=== PATIENT | female | born 1950 | race Caucasian/White ===

== ENCOUNTER 2017-09-25 14:32 | Inpatient (IN) | payer OTHER, MEDICAID ==
[~2017-09-25] VITALS: Ht 167.6 cm; Wt 85.3 kg
--- NOTE | ~2017-09-25 | EKG ---
[place] [address] ELECTROCARDIOGRAM REPORT Name: LORRAINE COOPER Room: [address] ADM IN ..#: [id number] Admission: 09/25/17 Attend Phys: Indigo Otto Discharge: Date of : 46 Report #: [id number] THIS REPORT FOR: //name// [facility] Test Date: 2017-09-26 Test Time: 08:54:15 Pat Name: LORRAINE KENNETH Department: Room: [address] Gender: F Second Vp Hr Assessment: : 1950 Requested By: Romeo Son Order Number: [id number] Reading MD: Measurements Intervals [place] Rate: 68 P: 51 SD: 183 QRS: -6 QRSD: 94 T: 8 QT: 422 QTc: 449 Interpretive Statements Sinus rhythm Abnormal R-wave progression, early transition Compared to ECG 08/17/2016 17:07:48 No significant changes [email or web address] By: [id number] Epiphany EpiphanyMD /EPI
[~2017-09-25 14:32] MED LIST: ASPIR 8181 MG PO; B/P MED; CLONIDINE0.1 PO; COREG25 MG PO; FLEXERIL PO; HYDROCHLOROTHIA25 M2 PO; HYDROCODON-ACE1 EAC7 PO; LISINOPRIL10 MG PO; MULTI-VITAMIN1 EAC5 PO; NAPROSYN375 MG PO; NORVASC5 MG PO; OTHER MISCELL; SINGULAIR 10 MG10 M1 PO; TRAMADOL 50 MG50 MG PO; WATER PILL
[2017-09-25 14:37] VITALS: BP 181/109
[2017-09-25] MEDS ORDERED: TYLENOL EXTRA500 MG PO (14:41)
[2017-09-25] MEDS ORDERED: EYE DROPS (14:42)
[2017-09-25] MEDS ORDERED: FISH OIL 1,001000 M2 PO (14:42)
[2017-09-25] MEDS ORDERED: FLONASE 0.05%50 MCG NASAL ×2 (14:42→18:30)
[2017-09-25 14:56] LABS: ABSOLUTE BASOPHILS 0.1 thou/uL (0.0-0.2); ABSOLUTE EOSINOPHILS 0.2 thou/uL (0.0-0.7); ABSOLUTE LYMPHOCYTES 2.9 thou/uL (0.8-5.3); ABSOLUTE NEUTROPHILS 4.7 thou/uL (1.6-8.1); BASOPHILS 1.3 %; EOSINOPHILS 2.4 %; HEMATOCRIT 41.1 % (37.0-47.0); HEMOGLOBIN 13.9 gm/dL (12.0-15.0); LYMPHOCYTES 32.1 %; MCH 29.9 pg (26.0-34.0); MCHC 33.8 g/dL (28.0-37.0); MCV 88.4 fL (80.0-100.0); MONOCYTES 10.8 %; MPV 8.4 fl. (7.2-11.1); NUCLEATED RBCS 0 /100WBC; PLATELET COUNT* 273 thou/uL (150-400); POLYS 53.4 %; RBC 4.65 mil/uL (4.20-5.00); WBC 8.9 thou/uL (4.0-11.0)
[2017-09-25 15:17] LABS: ANION GAP 12 mmol/L (7-16); BUN 16 mg/dL (7-18); CALCIUM 10.2 mg/dL (8.5-10.1); CHLORIDE 104 mmol/L (98-107); CO2 24 mmol/L (21-32); CREATININE 0.9 mg/dL (0.6-1.3); GLUCOSE 98 mg/dL (70-99); POTASSIUM 3.8 mmol/L (3.5-5.1); SODIUM 140 mmol/L (136-145)
[2017-09-25 15:37] LABS: ALBUMIN 4.2 g/dL (3.4-5.0); ALKALINE PHOSPHATASE 66 U/L (46-116); CK-MB MASS 1.4 ng/mL (<0.5-3.6); LIPASE 156 U/L (73-393); MAGNESIUM 2.2 mg/dL (1.8-2.4); NT-PRO BRAIN NAT PEPTIDE 180 pg/mL (<300); SGOT 21 U/L (15-37); SGPT 30 U/L (30-65); TOTAL BILIRUBIN 0.3 mg/dL (<0.1-1.0); TROPONIN-I LEVEL <0.06 ng/mL (<0.06)
[2017-09-25 15:43] LABS: APTT 25.9 Seconds (25.0-31.3)
[2017-09-25 16:45] VITALS: BP 173/86
[2017-09-25] MEDS ORDERED: ZANTAC 150MG T150 MG PO (18:26)
[2017-09-25] MEDS ORDERED: XANAX 0.25 MG0.25 MG PO (18:29)
[2017-09-25] MEDS ORDERED: EYE ALLERGY REL15 M1 OPHTHALMIC (18:34)
--- NOTE | 2017-09-25 19:10 | NUR ---
PATINET RESTING IN BED. UP AD YOVANA AND INDEPENDENT. AOX4. VITAL SIGNS TAKEN AND ADMISSION COMPLETED. HOURKY ROUNDING FOR PATINET SAFETY AND PATIENT IN NO APPARENT SIGNS OF DISTRESS.
[2017-09-25 20:00] VITALS: BP 177/83
[2017-09-26 02:18] VITALS: BP 112/85
--- NOTE | 2017-09-26 05:01 | NUR ---
PT ALERT ORIENTED. UP AD YOVANA IN ROOM. TRAMADOL GIVEN HS FOR MORGAN. PT STATED HE MORGAN WAS GONE ON REASSESSMENT. TELEMETRY SHOWS SR. INITAL BP 177/83. LAST BP 112/85. RESTING QUIETLY. WILL CONTINUE TO MONITOR.
[2017-09-26 08:00] VITALS: BP 156/85
--- NOTE | 2017-09-26 10:32 | EKG ---
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 [place] : 1950 Requested By: Romeo Son Order Number: [id number] MD: Armond Good Measurements Intervals [place] Rate: 106 P: 50 PA: 180 QRS: -8 QRSD: 99 T: 17 QT: 334 QTc: 444 Interpretive Statements Sinus tachycardia Minimal ST depression, lateral leads Compared to ECG 08/17/2016 17:07:48 ST (T wave) deviation now present Sinus rhythm no longer present Electronically Signed On 09-26-2017 10:31:52 CDT by Armond Good [email or web address] <ELECTRONICALLY SIGNED> By: Armond Good MD, FACC 09/26/17 1031 1439 1439 Armond Good MD, [facility] /EPI
--- NOTE | 2017-09-26 10:39 | EKG ---
[place] [address] ELECTROCARDIOGRAM REPORT Name: LORRAINE COOPER Room: [address] ADM IN [facility]#: [id number] Admission: 09/25/17 Attend Phys: Indigo Otto Discharge: Date of : 46 Report #: [id number] THIS REPORT FOR: //name// [facility] Test Date: 2017-09-25 Test Time: 23:33:18 Pat Name: LORRAINE COOPER Department: Room: [address] Gender: F Insole [place]: [place] : 1950 Requested By: Romeo Son Order Number: [id number] Gaby MD: Armond Good Measurements Intervals [place] Rate: 69 P: 62 ID: 178 QRS: -10 QRSD: 98 T: 31 QT: 436 QTc: 467 Interpretive Statements Sinus rhythm Compared to ECG 08/17/2016 17:07:48 rate slowed Electronically Signed On 09-26-2017 10:39:19 CDT by Armond Good [email or web address] <ELECTRONICALLY SIGNED> By: Armond Good MD, [facility] 09/26/17 1039 32 32 Armond Good MD, FACC /EPI
--- NOTE | 2017-09-26 10:44 | EKG ---
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
[2017-09-26 12:04] VITALS: BP 169/88
--- NOTE | 2017-09-26 15:34 | NUR ---
INITIAL ASSESSMENT: Pt evaluated for d/c planning needs. Reviewed chart and spoke with nurse and dtr. Pt currently off floor for testing. Pt lives alone in apartment and was independent with ADL's prior to admission to the hospital. Pt uses no DME and has not had home health in the past. Pt no longer drives. Family is supportive and involved. Pt plans on returning home on d/c from hospital. Will remain available to assist as needed.
--- NOTE | 2017-09-26 17:01 | NUR ---
PT SOMEWHAT PROGRESSING TOWARDS GOALS TODAY. CONSULTED CARDIOLOGY THIS SHIFT FOR HTN. HTN MEDS INCREASED AND PT HAS STRESS TEST SCHEDULED FOR TOMORROW. PT NOTED TO HAVE HTN WITH SBP ABOVE [address] BROWNLEE AWARE AND ORDERS TO GIVE HS HTN MEDS EARLY OBTAINED. PT NOTED TO BECOME VERY ANXIOUS WHEN BLOOD PRESSURE ELEVATED. DIFFICULT FOR PT TO CALM DOWN. WCTM. FAMILY AT BEDSIDE. CLWR.
[2017-09-26 17:30] VITALS: BP 165/80
[2017-09-26 20:00] VITALS: BP 203/100
[2017-09-26 22:30] VITALS: BP 138/57
[2017-09-27] VITALS (7 sets, daily range): BP systolic 112–155; BP diastolic 55–97
--- NOTE | 2017-09-27 04:14 | NUR ---
ASSUMED PT CARE AT 1930, PT IS A&OX4, PT APPEARS TO BE ANXIOUS REGARDING BP. PT GIVEN VERBAL EDUCATION ON REASONS BP CAN BE ELEVATED, AND MEDCATIONS TO BRING BP DOWN. PT IS TRACING NSR ON THE MONITOR, PT IS ON RA SATTING MID TO HIGH 90'S. PT C/O A HEADACHE THIS SHIFT, PRN PAIN MEDICATIONS GIVEN PER MAY. PT IS NPO THIS SHIFT FOR PENDING STRESS TEST IN THE AM. BED IN LOW POSITION, CALL IGHT IN REACH. HOURLY ROUNDING COMPLETED FOR PT SAFETY.
[2017-09-27 05:02] LABS: ABSOLUTE BASOPHILS 0.2 thou/uL (0.0-0.2); ABSOLUTE EOSINOPHILS 0.3 thou/uL (0.0-0.7); ABSOLUTE LYMPHOCYTES 2.7 thou/uL (0.8-5.3); ABSOLUTE MONOCYTES 0.9 thou/uL (0.0-1.2); ABSOLUTE NEUTROPHILS 3.5 thou/uL (1.6-8.1); EOSINOPHILS 3.7 %; HEMATOCRIT 39.1 % (37.0-47.0); HEMOGLOBIN 12.9 gm/dL (12.0-15.0); LYMPHOCYTES 35.7 %; MCH 29.5 pg (26.0-34.0); MCHC 33.1 g/dL (28.0-37.0); MCV 89.3 fL (80.0-100.0); MONOCYTES 12.4 %; MPV 8.5 fl. (7.2-11.1); NUCLEATED RBCS 0 /100WBC; PLATELET COUNT* 247 thou/uL (150-400); POLYS 46.2 %; RBC 4.39 mil/uL (4.20-5.00); RDW-CV 14.3 % (10.5-14.5); WBC 7.5 thou/uL (4.0-11.0)
[2017-09-27 05:14] LABS: ANION GAP 8 mmol/L (7-16); BUN 18 mg/dL (7-18); CHLORIDE 105 mmol/L (98-107); CHOLESTEROL 161 mg/dL (<200); CO2 26 mmol/L (21-32); CREATININE 0.9 mg/dL (0.6-1.3); GLUCOSE 99 mg/dL (70-99); HDL CHOLESTEROL 57 mg/dL (>40); LDL CHOLESTEROL 61 mg/dL (<100); POTASSIUM 4.2 mmol/L (3.5-5.1); SODIUM 139 mmol/L (136-145); TC:HDL 2.8 Ratio (Not establshd); TRIGLYCERIDE 217 mg/dL (<150); VLDL 43 mg/dL (<40)
[2017-09-27 05:27] LABS: SERUM ASSESSMENT CLEAR
--- NOTE | 2017-09-27 14:37 | CARDNUC ---
[place] [address] CARDIAC NUCLEAR IMAGING REPORT Name: LORRAINE COOPER Room: [address]#: [id number] Admission: 09/25/17 Attend Phys: Phani Edgar Discharge: Date of : 46 Date of Service: 09/27/17 1436 Report #: [id number] THIS REPORT FOR: //name// APPROVED REPORT Study performed: 09/26/2017 14:40:00 Indication: 232 Patient Location: In-Patient Room #: 232 Stress Tech: Jennifer Waters Stress Nurse: Elaina Buitrago RN Ht: 5 ft 10 in Wt: 187 lbs BSA: 2.03 m2 BMI: 26.82 Medical History Medical History: hypertension Medications: carvedilol, lisiniopril, aspirin, clonidine, enoxaparine Allergies: nkda Exercise History: Indeterminate Meds Held (24 hrs): carvedilol Resting Data Rest SPECT myocardial perfusion imaging was performed in supine position 30 minutes following the intravenous injection of 10.7 mCi of Tc-99m Sestamibi. Time of rest injection: 1000 The images were gated to evaluate regional wall motion and calculate left ventricular ejection fraction. Administration Route: IV Administration Site: Right Wrist Pharmacologic Stress Pharmacologic stress test was performed by injecting Regadenoson 0.4 mg IV push over 10-15 seconds immediately followed by the intravenous injection of 34.6 mCi of Tc-99m Sestamibi. Time of stress injection: 1125 Administration Route: IV Administration Site: Right Wrist Heart Rate at time of stress injection: 106 bpm. Gated Stress SPECT was performed 110 minutes after stress injection. The images were gated to evaluate regional [place] [address] CARDIAC NUCLEAR IMAGING REPORT Name: LORRAINE COOPER Room: [address]#: [id number] Admission: 09/25/17 Attend Phys: Phani Edgar Discharge: Date of : 46 Date of Service: 09/27/17 1436 Report #: [id number] left ventricular ejection fraction. Prone imaging was performed. Stress Test Details Stress Test: Pharmacologic stress testing performed using 0.4 mg of regadenoson per 5 mL given IV over 10 seconds. Reason for pharmacologic stress test: physical limitation. HR Resting HR: 75 bpm Max Heart Rate (APMHR): 151 bpm Max HR Achieved: 106 bpm Target HR (85% APMHR): 128 bpm % of APMHR: 70 Recovery HR: 92 bpm HR response to stress: Normal HR response to stress BP Resting BP: 175/91 mmHg Max BP: 176/96 mmHg BP response to stress: Normal blood pressure response to stress. ECG Resting ECG: Sinus Rhythm Stress ECG: Sinus Rhythm ST Change: None Arrhythmia: None Recovery ECG: Sinus Rhythm Recovery ST Change: None Recovery Arrhythmia: None Clinical Reason for Termination: Completed protocol Stress Symptoms: None Exercise duration: 0 min sec Exercise capacity: 1 METs Study Quality Study: Good Artifact: No artifact No artifact Lung Uptake: Normal Study Data At rest, the left ventricular ejection fraction was 78%.. Post stress, the left ventricular ejection was 84%.. SSS: 2 SRS: 5 [place] [address] CARDIAC NUCLEAR IMAGING REPORT Name: LORRAINE COOPER Room: [address] IN [facility]#: [id number] Admission: 09/25/17 Attend Phys: Phani Edgar Discharge: Date of : 46 Date of Service: 09/27/17 1436 Report #: [id number] SDS: -3 TID = 0.89. Perfusion Review of rest data reveals normal perfusion, without perfusion defects.Imaging obtained following vasodilator stress demonstrate a similar, uniform uptake of tracer without defects. Prone imaging was normal. LVEDV is normal.No segental wall motion abnormality seen. Images were reviewed using [employer]. Wall Motion normal all segments Nuclear Conclusion ECG Findings: negative for ischemia Clinical Findings: negative for ischemia Nuclear Findings: negative for ischemia Exercise Capacity: not assessed Left Ventricular Function: normal Risk Study: low Normal perfusion nuclear stress test <ELECTRONICALLY SIGNED> By: Ady Scott MD, FAC 09/27/17 1436 1436 1436 Ady Scott MD, [facility] /INF
--- NOTE | 2017-09-27 17:38 | NUR ---
ASSUMED CARE OF PATIENT AFTER REPORT THIS MORNING. PATIENT AWAKE, ALERT, AND ORIENTED APPROPRIATELY. PHYSICAL ASSESSMENT COMPLETED AND CHARTED. NO COMPLAINTS OF PAIN THIS SHIFT. GIVEN SCHEDULED MEDICATIONS AFTER STRESS TEST, SEE EMAR FOR DOCUMENTATION. VITAL SIGNS STABLE. OXYGEN SATURATION WITHIN NORMAL LIMITS ON ROOM AIR. PATIENT IS UP AD YOVANA IN ROOM WITHOUT DIFFICULTY. BATHROOM PRIVELEGES. DENIES NEEDS AT THIS TIME. CALL LIGHT WITHIN REACH, USES APPROPRIATELY. NURSING WILL CONTINUE TO MONITOR.
[2017-09-28] VITALS: BP 133/71
[2017-09-28 04:00] VITALS: BP 113/40
--- NOTE | 2017-09-28 04:17 | NUR ---
ASSUMED PT CARE AT 1930, PT IS A&OX4, TRACING NSR ON THE MONITOR, ON RA SATTING MID TO HIGH 90'S. PT DENIES ANY PAIN OR NEEDS AT THIS TIME. PT IS RESTING IN BED AT THIS TIME. BED IN LOW POSITION, CHUCKY LIGHT IN REACH, BED ALARM ON. HOURLY ROUNDING COMPLETED FOR PT SAFETY.
[2017-09-28 08:00] VITALS: BP 123/76
--- NOTE | 2017-09-28 08:00 | NUR ---
ASSESSMENT COMPLETED REFER TO COMPUTER CHARTING. FILLER SHAKER TRACKING SR. PATIENT RESTING IN BED REPORTING NO PAIN, NAUSEA OR SHORTNESS OF BREATH. BED IN LOW AND LOCKED POSITION. CALL LIGHT WITHIN REACH. IV SALINE LOCKED. AND ON ROOM AIR. DISCHARGE ORDERS RECIEVED. DISCHARGE INSTRUCTIONS GIVEN TO PATIENT. REPORTING NO QUESTIONS OR CONCERNS. IV AND FILLER SHAKER DISCONTINUED AND REMOVED. ALL PERSONAL BELONGINGS GATHERED AND SENT HOME WITH PATIENT. PATIENT WALKED TO THE DOORS WITH NURSING STAFF.
[2017-09-28] MEDS ORDERED: LISINOPRIL10 MG PO (09:10)
[2017-09-28] MEDS ORDERED: CARVEDILOL3.125 MG PO (09:12)
[2017-09-28 09:18] VITALS: BP 155/68
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
[2017-10-15] MEDS ORDERED: CLONIDINE0.1 PO (14:27)
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
== END 2017-09-28 12:26 | disposition home or self-care (01) | DRG 305 ==
LOC: M.ERS 14:32 → M.2W 15:36 → M.TBA-ER 15:36 → M.2W 17:02
PROVIDERS: Family Medicine; Internal Medicine; ADMIT Internal Medicine
DX: I16.1 Hypertensive emergency (principal); I10 Essential (primary) hypertension; F41.9 Anxiety disorder, unspecified; I65.21 Occlusion and stenosis of right carotid artery; Z79.82 Long term (current) use of aspirin; Z82.49 Family history of ischemic heart disease and other diseases of the circulatory system; Z79.899 Other long term (current) drug therapy

== ENCOUNTER → 2017-10-15 | Outpatient (CLI) | payer OTHER, MEDICAID ==
[2017-10-15] VITALS (9 sets, daily range): BP systolic 121–183; BP diastolic 51–82
[~2017-10-15] VITALS: Ht 167.6 cm; Wt 84.8 kg
[~2017-10-15] MED LIST changes: +CARVEDILOL3.125 MG PO; +EYE ALLERGY REL15 M1 OPHTHALMIC; +EYE DROPS; +FISH OIL 1,001000 M2 PO; +FLONASE 0.05%50 MCG NASAL; +MIRALAX17 GM PO; +NORCO 5-325 TA1 EACH PO; +TYLENOL EXTRA500 MG PO; +XANAX 0.25 MG0.25 MG PO; +ZANTAC 150MG T150 MG PO
[2017-10-15 08:56] LABS: HEMATOCRIT 41.5 % (37.0-47.0); HEMOGLOBIN 13.7 gm/dL (12.0-15.0); MCH 29.5 pg (26.0-34.0); MCHC 33.1 g/dL (28.0-37.0); MCV 89.3 fL (80.0-100.0); MPV 8.5 fl. (7.2-11.1); RBC 4.65 mil/uL (4.20-5.00); RDW-CV 13.7 % (10.5-14.5); WBC 6.3 thou/uL (4.0-11.0)
[2017-10-15 09:29] LABS: ANION GAP 10 mmol/L (7-16); BUN 14 mg/dL (7-18); CALCIUM 9.2 mg/dL (8.5-10.1); CHLORIDE 106 mmol/L (98-107); CO2 24 mmol/L (21-32); CREATININE 0.9 mg/dL (0.6-1.3); GLUCOSE 107 mg/dL (70-99); POTASSIUM 4.2 mmol/L (3.5-5.1); SODIUM 140 mmol/L (136-145)
[2017-10-15 09:34] LABS: ALBUMIN 3.8 g/dL (3.4-5.0); ALKALINE PHOSPHATASE 61 U/L (46-116); CHOLESTEROL 174 mg/dL (<200); HDL CHOLESTEROL 64 mg/dL (>40); LDL CHOLESTEROL 71 mg/dL (<100); SGOT 18 U/L (15-37); SGPT 28 U/L (30-65); TC:HDL 2.7 Ratio (Not establshd); TOTAL BILIRUBIN 0.3 mg/dL (<0.1-1.0); TOTAL PROTEIN 7.5 g/dL (6.4-8.2); TRIGLYCERIDE 196 mg/dL (<150); VLDL 39 mg/dL (<40)
[2017-10-15 09:41] LABS: SERUM ASSESSMENT Clear
[2017-10-15 09:49] LABS: APTT 25.9 Seconds (25.0-31.3)
--- NOTE | 2017-10-15 15:27 | EKG ---
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
--- NOTE | 2017-10-16 09:16 | CARD ---
[address] [address] CARDIAC CATH REPORT Name: LORRAINE COOPER Room: [facility]#: [id number] Admission: 10/15/17 Attend Phys: Armond Good MD, F Discharge: Date of : 46 Report #: [id number] THIS REPORT FOR: //name// APPROVED REPORT Study performed: 10/15/2017 12:04:23 Patient Details Patient Status: Out-Patient Room #: The patient is a 67 year-old female Event Personnel Armond Good Pulp[employer] Contractor, Mena Urban RTR Monitor, Tyson Lehman (R) Monitor, Fang Gutierrez RTR Scrub, Jasmyn Vu RN senior web developer Performed diagnostic cardiac catheterizationArt Access - R radial artery Art Access - R radial artery Left Heart Cath w/or w/o Coronaries [facility] Indication Dyspnea, Chest pain Risk Factors Arterial Hypertension, Peripheral Vascular Disease Admission/Lab Medications/Medications given during procedure Heparin Unfract. Procedure Narrative The patient was brought electively to the Cardiac Catheterization Laboratory and was prepped and draped in a sterile manner. The right wrist was infiltrated with 1% Lidocaine subcutaneous anesthesia. A 6 fr sheath was inserted into the right radial artery. Coronary angiography was performed using coronary diagnostic catheters. The right coronary system was accessed and visualized with a Diagnostic catheter. The left coronary system was accessed and visualized with a Diagnostic catheter. The left ventricle was accessed and visualized with a Diagnostic catheter. Left ventricular/Aortic Valve gradient assessed via catheter pullback. Left ventriculogram was performed in SCOTT projection. Closure device was deployed with a Fr small vasband. The patient tolerated the procedure well and there were no complications associated with the procedure. [place] [address] CARDIAC CATH REPORT Name: LORRAINE COOPER Room: [facility]#: [id number] Admission: 10/15/17 Attend Phys: Armond Good MD, F Discharge: Date of : 46 Report #: [id number] Intraoperative Conscious Sedation Sedation start time: 12:38 Case end Time: 1:17 Fluoro Time: 6 minutes Dose: DAP 98684 cGycm2 780 mGy Contrast Type and Amount: Omnipaque 90 ml Coronary Angiography The patient's coronary anatomy is right dominant. [place] Artery Percent Stenosis Left Main: 0 % Prox LAD: 0 % Mid/Distal LAD: 0 % Circumflex: 0 % RCA: 30 % Ramus: % Left Ventriculography The left ventricle is normal in size with normal contractility. The left ventricular ejection fraction is estimated to be 60-65%. Left ventricular wall motion abnormalities are not present. There is no mitral insufficiency. Hemodynamics The aortic pressure is 121/63 mmHg with a mean of 90 mmHg. The left ventricular pressure is 109/0 mmHg with a mean of mmHg. The left ventricular end diastolic pressure is 10 mmHg. There was no gradient across the aortic valve upon pullback. Conclusion 1. no significant cad 2. normal left ventricular systolic function Recommendations Aggressive Medical Therapy <ELECTRONICALLY SIGNED> By: Armond Good MD, [facility] 10/16/17915 5 5Dachantal Good MD, FAC /INF
== END | disposition home or self-care (01) ==
LOC: M.CL 08:16
PROVIDERS: Internal Medicine Cardiovascular Disease
DX: R07.9 Chest pain, unspecified (principal); I10 Essential (primary) hypertension; I73.9 Peripheral vascular disease, unspecified; Z79.899 Other long term (current) drug therapy; Z79.82 Long term (current) use of aspirin; Z79.891 Long term (current) use of opiate analgesic; Z98.890 Other specified postprocedural states

== ENCOUNTER 2017-10-18 07:09 | Inpatient (IN) | payer OTHER, MEDICAID ==
[~2017-10-18] VITALS: Ht 165.1 cm; Wt 98.0 kg
[~2017-10-18 07:09] MED LIST changes: -MIRALAX17 GM PO; -NORCO 5-325 TA1 EACH PO
[2017-10-18 09:35] VITALS: BP 115/70
[2017-10-18 18:00] VITALS: BP 137/60
[2017-10-18 18:42] LABS: CALCIUM 8.7 mg/dL (8.5-10.1); CREATININE 0.9 mg/dL (0.6-1.3); POTASSIUM 4.4 mmol/L (3.5-5.1)
--- NOTE | 2017-10-18 18:57 | NUR ---
ADMITTED PT FROM OR ALERT AND ORIENTED INCISION INTACT. DENIES PAIN OR SOA. TAKING PO WELL. PROGRESSING
[2017-10-18 19:00] VITALS: BP 112/57
[2017-10-18 22:00] VITALS: BP 119/58
[2017-10-19] VITALS (8 sets, daily range): BP systolic 90–137; BP diastolic 50–70
--- NOTE | 2017-10-19 10:29 | NUR ---
INTERDISICIPLINARY ROUNDS: PT IS S/P CEA AND HAS ORDERS FOR DC PENDING SURGEON APPROVAL. PT IS EXCITED ABOUT GOING HOME. SHE LIVES ALONE IN [place] IN [place]. HAS FRIENDS THERE WHO ARE HELPFUL. PT HAS SUPPORTIVE FAMILY. SHE IS INDEPENDENT WITH ADLS AND USES NO EQUIPMENT. PT DOESN'T DRIVE, [facility]TR PROVIDES TRANSPORT. PT STATES SHE HAS NO NEEDS AT DC AND DECLINED HH.
[2017-10-19] MEDS ORDERED: NORCO 5-325 TA1 EACH PO (11:30)
[2017-10-19] MEDS ORDERED: MIRALAX17 GM PO (11:56)
--- NOTE | 2017-10-19 14:15 | NUR ---
PT ASSESSMENT CHARTED. VSS. DISCHARGE INFORMATION HAS BEEN GONE OVER WITH PATIENT. PRESCRIPTION FOR HYDROCODONE GIVEN FROM VASCULAR. PATIENT UP WALKING AROUND THE UNIT WITHOUT DIFFICULTY. NO QUESTIONS OR CONCERNS AT THIS TIME. PRESENTLY WAITING FOR DAUGHTER TO PICK PATIENT UP FOR DISCHARGE.
--- NOTE | 2017-10-19 21:31 | OP ---
[facility] [address] [place] [address] OPERATIVE REPORT Name: LORRAINE COOPER Room: [address] IN [facility]#: [id number] Admission: 10/18/17 Attend Phys: Indigo Otto Discharge: 10/19/17 Date of : 46 Report #: [id number] THIS REPORT FOR: //name// CC: Hollis Edgar DATE OF SERVICE: 10/18/2017 PREOPERATIVE DIAGNOSIS: Asymptomatic high-grade right carotid artery stenosis. POSTOPERATIVE DIAGNOSIS: Asymptomatic high-grade right carotid artery stenosis. OPERATION: 1. Right carotid endarterectomy with bovine pericardial patch angioplasty. 2. Completion intraoperative duplex. SURGEON: Hollis Joseph DO. SHOP WELDER: CLARA Upton. ANESTHESIA: General. ESTIMATED BLOOD LOSS: 150 mL. FLUIDS: 800 mL crystalloid. URINE OUTPUT: None. SPECIMENS: Right carotid plaque. IMPLANTS: 0.8 x 8 bovine pericardial patch in the right carotid artery. COMPLICATIONS: None. FINDINGS: Demonstrated heavily calcified approximately 80% stenosis in the right carotid artery. This endarterectomized well with good distal endpoint in the internal carotid artery. Completion intraoperative duplex demonstrated no intraluminal defects, good flow through the external carotid artery and continuous diastolic flow through the internal carotid artery. CLINICAL HISTORY: The patient is a 67-year-old woman with high-grade right carotid artery stenosis. She was recommended for elective endarterectomy for stroke risk reduction. DETAILS OF PROCEDURE: After informed consent was obtained, the patient was [facility] [address] [place] [address] OPERATIVE REPORT Name: LORRAINE COOPER Room: [address] IN [facility]#: [id number] Admission: 10/18/17 Attend Phys: Indigo Otto Discharge: 10/19/17 Date of : 46 Report #: [id number] taken to the operating room and placed on the OR bed in supine position. She was administered general anesthesia by the anesthesia team. Right neck was prepped and draped in the usual sterile fashion. Full timeout was performed identifying correct patient and procedure. Next, a longitudinal incision was made along the anterior border of sternocleidomastoid. Dissection was carried down through skin and subcutaneous tissues both sharply with electrocautery. The facial vein was identified, was ligated between 2-0 silk ties and divided. The remainder carotid sheath was entered. The common carotid artery was circumferentially dissected free and controlled with an umbilical tape and Rumel tourniquet. The vagus nerve was seen coursing over the bifurcation. I had to have extensive mobilization in order to gain control of the bifurcation. Also, I had to fully mobilize the hypoglossal nerve and divide the occipital branch to the external carotid artery and gained distal control of the internal carotid artery. The external carotid and superior thyroid arteries were then also controlled with Silastic vessel loops in Lam fashion. I then administered 8000 units of intravenous heparin. This was allowed to circulate for 3 minutes. I then sequentially clamped the internal followed by the external common carotid arteries. I then made a longitudinal arteriotomy, extended with Lam scissors on the normal common and internal carotid arteries. I then placed a 10-[place] shunt in standard fashion. Doppler interrogation confirmed flow through the shunt. I then performed a standard endarterectomy, the eversion endarterectomy of the external carotid artery, freed the artery of all intimal debris, tailoring good distal endpoint on the internal carotid artery, flushed with heparinized saline. I then performed a patch angioplasty with bovine pericardial patch with running 6-0 Prolene suture. Prior to completion of the suture line, the shunt was removed and the arteries were allowed to fore and backbleed and then flushed with heparinized saline. I completed the patch, restored flow first up the external carotid artery and after several heartbeats to the internal carotid artery. I then performed intraoperative duplex, again demonstrated no intraluminal defects and good flow through the external and continuous diastolic flow through the internal carotid artery. Satisfied with the result, the heparin was then partially reversed with 50 mg protamine. Once hemostasis was ensured, the wound was irrigated with antibiotic solution. It was closed in layers with 2-0 and 3-0 Vicryl, 4-0 Monocryl on the skin. Dermabond was applied. All sponge, sharp and instrument counts reported correct x 2. She tolerated the procedure well. She was extubated, moving upper and lower extremities appropriately to command and taken to recovery room in stable condition. <ELECTRONICALLY SIGNED> By: Hollis Joseph DO 10/19/17 2131 1600 1632Aruth Joseph DO /nt
--- NOTE | 2017-10-30 14:10 | PATH ---
[facility] [address] [place] [address] PATHOLOGY RPT PROCEDURE Name: CATRACHITA COOPER Room: [address] IN ..#: [id number] Admission: 10/18/17 Date of : 46 Discharge: 10/19/17 Report #: [id number] Path Case #: [id number] [facility] Accession Number: [id number] . 01 Material submitted: . RIGHT CAROTID PLAQUE . 01 Clinical history: . Right carotid stenosis . 02 Diagnosis: Plaque "right carotid plaque": - Calcified atherosclerosis. (SHA:leo; 10/23/2017) QMS/10/23/2017 . 02 Electronically signed: . Kareem Stauffer MD, Pathologist NPI- [id number] . 01 Gross description: . The specimen is received in formalin, labeled "Catrachita Cooper right carotid plaque". Received is a segment of moderately calcified rubbery pale maradiaga tissue measuring 2.0 x 1.2 x 0.8 cm in greatest dimensions. The specimen is submitted representatively in cassette A1, following decalcification. (CAA; 10/19/2017) QAC/QAC . 02 Pathologist provided ICD-10: I65.21 . 02 CPT . 055082, 432990 Performed at: [address], [place], [place] [id number] MD Sourav Ospina MD Phone: [phone] Performed at: [address] [address] [address] [place], [place] [id number] MD Jeronimo Barnes MD Phone: [phone]
== END 2017-10-19 14:27 | disposition home or self-care (01) | DRG 26 ==
LOC: M.PRE 07:09 → M.ICU 09:25 → M.TBA 09:25 → M.PRE 15:09 → M.ICU 17:10
PROVIDERS: ADMIT Internal Medicine
PROC: 03UK3KZ Supplement Right Internal Carotid Artery with Nonautologous Tissue Substitute, Percutaneous Approach (ICD-10-PCS; principal; 2017-10-18)
PROC: 03CK3ZZ Extirpation of Matter from Right Internal Carotid Artery, Percutaneous Approach (ICD-10-PCS; principal; 2017-10-18)
DX: I65.21 Occlusion and stenosis of right carotid artery (principal); J98.11 Atelectasis; I10 Essential (primary) hypertension; Z79.82 Long term (current) use of aspirin; F41.9 Anxiety disorder, unspecified; I25.10 Atherosclerotic heart disease of native coronary artery without angina pectoris; I73.9 Peripheral vascular disease, unspecified; I25.119 Atherosclerotic heart disease of native coronary artery with unspecified angina pectoris; K59.00 Constipation, unspecified

== ENCOUNTER → 2018-06-27 | Outpatient (CLI) | payer OTHER, MEDICAID ==
[~2018-06-27] MED LIST changes: +MIRALAX17 GM PO; +NORCO 5-325 TA1 EACH PO
--- NOTE | 2018-07-08 20:50 | SLEEP ---
[address] [address] SLEEP STUDY REPORT Name: LORRAINE COOPER Room: [facility]#: [id number] Admission: 06/27/18 Attend Phys: Jennyfer Duran RN Discharge: Date of : 46 Report #: [id number] THIS REPORT FOR: //name// CC: John Duran COORDINATOR OF PLACEMENT-C This study has been reviewed in its entirety by a board certified sleep specialist DATE OF SERVICE: 06/30/2018 HOME SLEEP STUDY ATTENDING PHYSICIAN: Dr. Jennyfer Duran. The patient is a 68-year-old who weighs 184 pounds with a BMI of 35.9. The patient's Mercer score was 8. The patient underwent home sleep study performed at [facility]. Total recording time was 403 minutes. During the night study, the patient had 67 obstructive apneas, no central or mixed apneas and 125 hypopneas. The patient's apnea-hypopnea index was 28.6 per hour. Nocturnal oximetry study revealed an average oxygen saturation of 88% with a lowest of 74%. 325 minutes were spent in oxygen saturation of less than 90%. Mean heart rate was 59 beats per minute with a maximum of 78 beats per minute. IMPRESSION: 1. Moderate to severe sleep apnea-hypopnea syndrome with an apnea-hypopnea index of 28.6 per hour. 2. Nocturnal hypoxia secondary to obstructive sleep apnea. RECOMMENDATIONS: 1. The patient would benefit from in-lab CPAP titration study. 2. Once optimum CPAP pressure is achieved, then follow up in 4-6 weeks to assess compliance and to document clinical improvement. 3. Weight loss is advised. 4. 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 5. Cautioned regarding driving until symptoms of sleep apnea resolve with the above recommendations. <ELECTRONICALLY SIGNED> By: Eddie Valdez MD 07/08/182049 1529 1840Eddie Valdez MD /nt
== END ==
LOC: M.SLEEPLAB 13:18
DX: G47.30 Sleep apnea, unspecified (principal); G47.34 Idiopathic sleep related nonobstructive alveolar hypoventilation; G47.9 Sleep disorder, unspecified; E78.5 Hyperlipidemia, unspecified; I10 Essential (primary) hypertension; I25.10 Atherosclerotic heart disease of native coronary artery without angina pectoris; E66.9 Obesity, unspecified; F17.210 Nicotine dependence, cigarettes, uncomplicated; J44.9 Chronic obstructive pulmonary disease, unspecified; Z68.30 Body mass index [BMI] 30.0-30.9, adult; Z79.899 Other long term (current) drug therapy; Z98.890 Other specified postprocedural states; Z72.89 Other problems related to lifestyle

== ENCOUNTER → 2019-02-04 | Outpatient (CLI) | payer OTHER, MEDICAID | LOC: M.RAD 11:08 | DX: Z12.31 Encounter for screening mammogram for malignant neoplasm of breast (principal) ==

== ENCOUNTER 2019-10-12 12:12 | Emergency (ER) | payer OTHER, MEDICAID ==
[~2019-10-12] VITALS: Ht 167.6 cm; Wt 78.5 kg
[2019-10-12] MEDS ORDERED: ALPRAZOLAM 0.0.25 M1 PO (12:31)
[2019-10-12] MEDS ORDERED: CARVEDILOL25 MG PO (12:32)
[2019-10-12] MEDS ORDERED: CLONIDINE HCL0.2 M2 PO (12:33)
[2019-10-12] MEDS ORDERED: NORVASC5 M1 PO (12:36)
[2019-10-12 12:41] LABS: ABSOLUTE BASOPHILS 0.1 thou/uL (0.0-0.2); ABSOLUTE EOSINOPHILS 0.1 thou/uL (0.0-0.7); ABSOLUTE LYMPHOCYTES 2.1 thou/uL (0.8-5.3); ABSOLUTE MONOCYTES 0.9 thou/uL (0.0-1.2); ABSOLUTE NEUTROPHILS 4.2 thou/uL (1.6-8.1); BASOPHILS 1.3 %; HEMATOCRIT 40.1 % (37.0-47.0); HEMOGLOBIN 13.5 gm/dL (12.0-15.0); LYMPHOCYTES 28.1 %; MCH 29.9 pg (26.0-34.0); MCHC 33.7 g/dL (28.0-37.0); MCV 88.7 fL (80.0-100.0); MONOCYTES 12.1 %; MPV 8.4 fl. (7.2-11.1); NUCLEATED RBCS 0 /100WBC; PLATELET COUNT* 239 thou/uL (150-400); POLYS 56.5 %; RBC 4.52 mil/uL (4.20-5.00); RDW-CV 14.2 % (10.5-14.5); WBC 7.4 thou/uL (4.0-11.0)
[2019-10-12 12:54] LABS: CALCIUM 8.8 mg/dL (8.5-10.1); POTASSIUM 4.5 mmol/L (3.5-5.1)
[2019-10-12 12:58] LABS: ALBUMIN 3.8 g/dL (3.4-5.0); TOTAL BILIRUBIN 0.3 mg/dL (<0.1-1.0); TOTAL PROTEIN 7.4 g/dL (6.4-8.2)
[2019-10-12 13:00] LABS: URINE BILIRUBIN NEGATIVE (Negative); URINE BLOOD NEGATIVE (Negative); URINE CLARITY CLEAR; URINE COLOR YELLOW; URINE GLUCOSE-RANDOM NEGATIVE (Negative); URINE KETONES NEGATIVE (Negative); URINE LEUKOCYTES-REFLEX TRACE (Negative); URINE NITRITE-REFLEX NEGATIVE (Negative); URINE PROTEIN NEGATIVE (Negative); URINE UROBILINOGEN 0.2 E.U./dl (0.2-1.0)
[2019-10-12 13:10] LABS: BACTERIA-REFLEX 1-9 Few /HPF (None Seen); CASTS None Seen /LPF (None Seen); CRYSTALS None Seen /LPF (None Seen); MUCUS 0-3 Light strn/LPF (None Seen); SQUAMOUS 0-3 Few /LPF (0-3); URINE RBC 0-2 Rare /HPF (0-2); URINE WBC-REFLEX 0-5 Rare /HPF (0-5)
[2019-10-12] MEDS ORDERED: PROAIR HFA8.5 GM INH (13:33)
[2019-10-12 13:46] VITALS: BP 166/78
--- NOTE | 2019-10-13 10:04 | EKG ---
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
== END 2019-10-12 13:47 | disposition home or self-care (01) ==
LOC: M.ERS 12:12
PROVIDERS: Physician Assistant
DX: I10 Essential (primary) hypertension (principal); R53.1 Weakness; F41.9 Anxiety disorder, unspecified